=== PATIENT | female | born 1950 | race Caucasian/White ===

== ENCOUNTER 2016-06-11 10:09 | Emergency (ER) | payer OTHER, BC ==
[~2016-06-11] VITALS: Ht 160 cm; Wt 72.6 kg
[2016-06-11] MEDS ORDERED: CHLO125TA (10:19)
[2016-06-11] MEDS ORDERED: LOSA25TA8 (10:19)
[2016-06-11] MEDS ORDERED: NORCOTAB PO (12:58)
--- NOTE | 2016-06-11 12:59 | REP ---
LEFT RIB SERIES: Four views of the left ribs performed. There appear to be nondisplaced fractures at the anterior ends of the left 9th and 10th ribs. There is no other definite fracture or dislocation. An accompanying view of the chest demonstrates no pneumothorax or acute infiltrate. There is mild calcification and tortuosity of the thoracic aorta. IMPRESSION: Nondisplaced fractures anterior end left 9th and 10th ribs. Signed by Khari Israel MD 06/11/2016 03:55 P
[2016-06-11 13:18] VITALS: BP 189/87
== END 2016-06-11 13:22 | disposition home or self-care (01) ==
LOC: M ED 11:27
DX: S22.42XA Multiple fractures of ribs, left side, initial encounter for closed fracture (principal); W01.198A Fall on same level from slipping, tripping and stumbling with subsequent striking against other object, initial encounter; Y92.139 Unspecified place military base as the place of occurrence of the external cause; Y93.01 Activity, walking, marching and hiking; Y99.9 Unspecified external cause status

== ENCOUNTER → 2018-11-19 | Outpatient (CLI) | payer BC ==
[~2018-11-19] MED LIST: CHLO125TA; HYDR-3715 PO; LOSA25TA14
[2018-11-19 08:33] LABS: BASO % 0.6 % (0.0-1.0); HEMATOCRIT 38.6 % (36.0-47.0); LYMPH # 2.3 10^3/uL (1.5-5.0); LYMPH % 35.8 % (24.0-44.0); MEAN CORPUSCULAR HGB CONC 33.7 g/dl (32.0-36.5); MEAN CORPUSCULAR VOLUME 88.9 fl (80.0-96.0); MONO # 0.5 10^3/uL (0.0-0.8); NEUTROPHILS # 3.5 10^3/uL (1.5-8.5); NEUTROPHILS % 55.4 % (36.0-66.0); PLATELET COUNT, AUTOMATED 293 10^3/uL (150-450); RED BLOOD COUNT 4.34 10^6/uL (4.00-5.40); WHITE BLOOD COUNT 6.3 10^3/uL (4.0-10.0)
[2018-11-19 08:57] LABS: HEMOGLOBIN A1c 5.9 %
[2018-11-19 09:07] LABS: ALBUMIN 3.6 GM/DL (3.2-5.2); ALT/SGPT 26 U/L (12-78); BILIRUBIN,TOTAL 0.4 MG/DL (0.2-1.0); BLOOD UREA NITROGEN 14 MG/DL (7-18); CALCIUM LEVEL 9.6 MG/DL (8.8-10.2); CARBON DIOXIDE LEVEL 26 MEQ/L (21-32); CHLORIDE LEVEL 107 MEQ/L (98-107); CHOLESTEROL LEVEL 234 MG/DL (<200); CHOLESTEROL RISK RATIO 4.588 (<5); GLOMERULAR FILTRATION RATE > 60.0 (>45); GLUCOSE, FASTING 98 MG/DL (70-100); HDL CHOLESTEROL 51 MG/DL (>40); LDL CHOLESTEROL 132 MG/DL (<100); NON-HDL-C 183 MG/DL; POTASSIUM SERUM 3.9 MEQ/L (3.5-5.1); SODIUM LEVEL 143 MEQ/L (136-145); TOTAL PROTEIN 6.7 GM/DL (6.4-8.2); TRIGLYCERIDES LEVEL 256 MG/DL (<150)
== END ==
LOC: M LAB 07:44
PROVIDERS: ATTEND Nurse Practitioner Adult Health
DX: I10 Essential (primary) hypertension (principal)